=== PATIENT | female | born 1970 | race Caucasian/White ===

== ENCOUNTER 2023-10-14 08:30 | Outpatient (CLI) | payer BC ==
[~2023-10-14] VITALS: Ht 165.1 cm; Wt 91.0 kg
[~2023-10-14 08:30] MED LIST: ALBUTEROL SULFATE 2.5MG/0.5ML INH NEB SOLN INH PRN; EPINEPHrine INJ 1 MG/ML 1ML AMP IM PRN; diphenhydrAMINE 50MG/ML VIAL IV PRN; methylPREDNISolone 125MG 2ML VIAL IV PRN
[2023-10-14] MEDS ORDERED: NS 1,000 ML IV SCH (09:00)
[2023-10-14 09:05] VITALS: BP 119/72; O2SAT 100
[2023-10-14] MEDS: FERRIC CARBOXYMALTOSE INJ 750 MG in NS 250 ML (>50kg) IV ONE (09:28)
[2023-10-14] MEDS ORDERED: CELE40TA PO (09:39)
[2023-10-14] MEDS ORDERED: BPRO1LIQ PO (09:39)
[2023-10-14] MEDS ORDERED: KLON0.5T8 PO (09:39)
[2023-10-14] MEDS ORDERED: CYMB1CAP5 PO (09:39)
[2023-10-14] MEDS ORDERED: WELLTAB40 PO (09:39)
[2023-10-14] MEDS ORDERED: TOPA100T12 PO (09:39)
[2023-10-14] MEDS ORDERED: TRAZ-186 PO (09:39)
[2023-10-14 11:00] VITALS: BP 112/70; O2SAT 100
== END 2023-10-14 11:00 ==
LOC: M INFU 08:30
PROVIDERS: ATTEND Internal Medicine Hematology
DX: D50.9 Iron deficiency anemia, unspecified (principal); Z88.2 Allergy status to sulfonamides
CPT/HCPCS: 96365; J1439

== ENCOUNTER 2023-10-21 12:12 | Outpatient (CLI) | payer BC ==
[~2023-10-21] VITALS: Ht 165.1 cm; Wt 88.2 kg
[~2023-10-21 12:12] MED LIST changes: +BPRO1LIQ PO; +CELE40TA PO; +CYMB1CAP5 PO; +KLON0.5T8 PO; +NS 1,000 ML IV SCH; +TOPA100T12 PO; +TRAZ-186 PO; +WELLTAB40 PO
[2023-10-21] MEDS: FERRIC CARBOXYMALTOSE INJ 750 MG in NS 250 ML (>50kg) IV ONE (12:23)
[2023-10-21 12:32] VITALS: BP 114/70; O2SAT 99
[2023-10-21 13:30] VITALS: BP 112/66; O2SAT 99
== END 2023-10-21 13:40 | disposition home or self-care (01) ==
LOC: M INFU 12:12
PROVIDERS: ATTEND Internal Medicine Hematology
DX: D50.9 Iron deficiency anemia, unspecified (principal); Z88.2 Allergy status to sulfonamides
CPT/HCPCS: 96365; J1439

== ENCOUNTER → 2025-01-15 | Outpatient (REF) | payer BC ==
[~2025-01-15] MED LIST changes: -ALBUTEROL SULFATE 2.5MG/0.5ML INH NEB SOLN INH PRN; -EPINEPHrine INJ 1 MG/ML 1ML AMP IM PRN; -NS 1,000 ML IV SCH; -diphenhydrAMINE 50MG/ML VIAL IV PRN; -methylPREDNISolone 125MG 2ML VIAL IV PRN
== END ==
LOC: M SFHCRHEU 10:14
PROVIDERS: ATTEND Internal Medicine Rheumatology
DX: Z53.9 Procedure and treatment not carried out, unspecified reason (principal); M46.1 Sacroiliitis, not elsewhere classified; M35.00 Sjogren syndrome, unspecified; M70.62 Trochanteric bursitis, left hip